=== PATIENT | female | born 1940 | race Caucasian/White ===

== ENCOUNTER 2017-12-08 17:10 | Inpatient (IN) ==
[2017-12-08] MEDS: Gabapentin 300 MG CAPSULE PO SCH (19:55)
[2017-12-08] MEDS: *HR* HYDROcodone/Acet 5/325 mg TABLET PO PRN (19:55)
[2017-12-09] MEDS: *HR* HYDROcodone/Acet 5/325 mg TABLET PO PRN ×3 (06:14→21:52)
[2017-12-09 07:13] LABS: Basophils % 0.4 %; Eosinophils # 0.2 K/mcL (0.0-0.6); Hematocrit 25.3 % (35.3-44.9); Hemoglobin 8.6 g/dL (11.5-15.4); Immature Granulocytes % 3.1 % (0-4); Lymphocytes # 1.6 K/mcL (0.6-4.6); Lymphocytes % 21.8 %; Mean Corpuscular Hemoglobin 26.5 pg (28.0-33.3); Mean Corpuscular Volume 78.1 fL (83.0-100.0); Mean Platelet Volume 10.1 fL (9.4-12.4); Monocytes # 0.9 K/mcL (0.0-1.3); Monocytes % 11.7 %; Platelet Count 293 K/mcL (140-400); Red Blood Count 3.24 M/mcL (3.82-4.97); Red Cell Distribution Width 14.2 % (11.5-14.5)
[2017-12-09 07:15] LABS: INR 1.2; Neutrophils # 4.4 K/mcL (1.6-8.9); Prothrombin Time 12.5 Seconds (9.4-12.1)
[2017-12-09 07:17] LABS: Activated Partial Thrombo Time 26.1 Seconds (26.0-36.0)
[2017-12-09] MEDS: Gabapentin 300 MG CAPSULE PO SCH ×2 (08:24→21:52)
[2017-12-09] MEDS: Furosemide 40 MG TABLET PO SCH (08:24)
[2017-12-09] MEDS: amLODIPine 5 MG TABLET PO SCH (08:24)
[2017-12-09] MEDS: *HR* GlipiZIDE 5 MG TABLET PO SCH (08:24)
[2017-12-09] MEDS: traMADol 50 MG TABLET PO PRN ×2 (08:24→17:39)
[2017-12-09 09:17] LABS: BUN/Creatinine Ratio 33 (6-26); Blood Urea Nitrogen 28 mg/dL (7-20); Calcium 9.1 mg/dL (8.6-10.8); Carbon Dioxide 25 mEq/L (19-29); Chloride 103 mEq/L (98-109); Glucose 139 mg/dL (70-99); Osmolality,Calculated 296 (280-300); Potassium 3.8 mEq/L (3.5-4.5); Sodium 139 mEq/L (136-145); eGFR For African Americans > 60 (> 60); eGFR For Non-African Americans > 60 (> 60)
[2017-12-09] MEDS ORDERED: Bisacodyl 10 MG RECTAL SUPPOSITORY RC PRN (11:07)
--- NOTE | 2017-12-09 12:08 | Internal Med History&Physical ---
Date of Encounter: 12/09/17 Time of Encounter: 12:03 Assessment and Plan (1) S/P lumbar fusion Current visit: Yes Status: Acute pain controlled. continue norco as ordered. PT/OT eval and treat. will follow progress. f/u with surgeon as scheduled. (2) Diabetes Current visit: No Status: Chronic stable with glipizide. monitor FSBS. will adjust meds a necessary. Qualifiers: Diabetes mellitus type: type 2 Diabetes mellitus complication status: with unspecified complications Diabetes mellitus long term care administrator insulin use: without mcc use Qualified Code(s): E11.8 - Type 2 diabetes mellitus with unspecified complications (3) Hypertension Current visit: No Status: Acute controlled with metoprolol and norvasc. monitor BP. Qualifiers: Hypertension type: essential hypertension Qualified Code(s): I10 - Essential (primary) hypertension (4) Slow transit constipation Current visit: Yes Status: Acute dulcolax sup today. miralax daily Internal Medicine - H&P: HPI Admitted From: Intrahospital Transfer Plans for Post Hospital Care: Home History of present illness: Ms. Mcginnis is a 77 year old female admitted to inpatient rehab after lumbar spinal fusion on . hx of: neuropathy, HTN, dyslipidemia, gout, DM2, herpes simplex 1, diastolic dysfunction, CKD stg 3, lumbar stenosis. states pain controlled with norco. c/o constipation. last BM was at least 5 days ago. denies fever, chills, NVD. Past Med Surg Social Fam HX - Past Medical History Medical history: COPD, diabetes, RA, other Psychiatric history: no psych history, anxiety - Past Surgical History Surgical History: hysterectomy, other - Social History Smoking Status: Never smoker Smokeless Tobacco Status: No Alcohol use: none Drug use: none - Family History Mother Living Status: Cause of : mi Hx Family Cardiac Disorders: Yes (chf) Hx Family Respiratory Disorders: No Hx Family Cancer: No Hx Family GI Disorders: No Hx Family Endocrine Disorder: Yes (diabetes) Hx Family Neuromuscular Disorders: No Hx Family Neurologic Disorders: No Hx Family HEENT Disorders: No Hx Family Autoimmune Disorders: No Internal Medicine - H&P: Meds Atorvastatin [Lipitor] 20 mg PO HS 10/06/15 [History] TraMADol [Ultram] 50 mg PO QID PRN 10/06/15 [History] Gabapentin [Neurontin] 300 mg PO BID 05/02/17 [History] Loperamide HCl [Imodium A-D] 2 mg PO Q6H PRN 05/02/17 [History] glipiZIDE [Glucotrol] 5 mg PO DAILY 05/02/17 [History] Metoprolol [Lopressor] 25 mg PO BID #60 tablet 05/05/17 [Rx] amLODIPine [Norvasc] 5 mg PO DAILY #30 tablet 05/05/17 [Rx] Albuterol Sulfate [Albuterol Inhaler] 2 puff IH Q4HR PRN 12/03/17 [History] Furosemide [Lasix] 40 mg PO DAILY 12/03/17 [History] Naproxen Sodium [Aleve] 220 mg PO BID PRN 12/03/17 [History] HYDROcodone/Acet 5/325 mg [Herrin 5-325 mg] 2 tab PO Q4H PRN #60 tablet 12/08/17 [Rx] 3 Allergy/AdvReac Type Severity Reaction Status Date / Time codeine AdvReac Vomiting Verified 12/03/17 07:10 All Systems PM: A 10-system review of systems was performed and is negative for pertinent findings except as documented above in the HPI. - Constitutional Constitutional: no chills, no fever(s), no night sweats - EENT Eyes: no change in vision, no discharge, no pain, no photophobia Ears: no ear discharge, no ear pain, no tinnitus Nose, mouth and throat: no dysphagia, no nasal discharge, no neck pain, no sore throat - Cardiovascular Cardiovascular ROS IM: no chest pain, no diaphoresis, no dyspnea, no lightheadedness, no palpitations, no syncope - Respiratory Respiratory: no cough, no dyspnea, no wheezing, no excessive phlegm production - Gastrointestinal Gastrointestinal: no abdominal pain, no diarrhea, no hematemesis, no hematochezia, no melena, no nausea, no vomiting - Genitourinary Genitourinary: no change in urinary stream, no dysuria, no flank pain, no hematuria - Musculoskeletal Musculoskeletal ROS IM: no numbness, no tingling - Integumentary Integumentary IM: no rash, no unusual bruising - Neurological Neurological ROS: no confusion, no convulsions, no focal weakness, no numbness, no tingling, no tremor(s) - Hematologic/Lymphatic Hematologic/Lymphatic: no easy bruising - Constitutional Vitals: Temp Pulse Resp BP Pulse Ox 99.2 F 75 16 120/67 90 12/09/17 07:00 12/09/17 07:00 12/09/17 03:46 12/09/17 07:00 12/09/17 07:00 General appearance: Present: cooperative, A&O X 3, pleasant, no acute distress, answers questions appropriately - Head Head exam: Present: atraumatic, normocephalic - Eye Eye exam: Present: PERRL, conjuntiva pink, sclera anicteric Pupils: Present: PERRL - Neck Neck exam general surgery: Present: supple, trachea midline. Absent: lymphadenopathy - Respiratory Respiratory exam: Present: CTAB. Absent: accessory muscle use, rales, rhonchi, wheezes - Cardiovascular Cardiovascular exam: Present: RRR, +S1, +S2. Absent: diastolic murmur, gallop, rubs, systolic murmur - GI/Abdominal GI/Abdominal exam: Present: normal bowel sounds, soft, no peritoneal signs. Absent: distended, tenderness - Extremities Exam Extremities exam: Present: warm, radial pulses palpable and symmetrical. Absent : calf tenderness, cyanotic, pedal edema - Neurological Exam Neurological exam: Present: CN II-XII intact, oriented X3, no focal deficits. Absent: pronater drift, facial droop, speech deficit - Skin Skin exam: Present: dry, intact Additional comments: lumbar spine incision well approixmated with steris in place. no drainage or signs of infection. Internal Med - H&P Results - Labs CBC & Chem 7: 12/09/17 07:05 12/09/17 07:05 Labs: Short CBC 12/09/17 Range/Units 07:05 WBC 7.4 D (4.3-11.1) K/mcL Hgb 8.6 L (11.5-15.4) g/dL Hct 25.3 L (35.3-44.9) % Plt Count 293 (140-400) K/mcL Neutrophils # 4.4 (1.6-8.9) K/mcL BMP 12/09/17 07:05 Sodium 139 Potassium 3.8 Chloride 103 Carbon Dioxide 25 BUN 28 H Creatinine 0.84 Glucose 139 H Calcium 9.1 - VTE Documentation of Mechanical Device: Graduated compression elastic hosiery
[2017-12-09] MEDS: *HR* Enoxaparin 40 MG/0.4 ML SYRINGE SQ SCH (17:40)
[2017-12-10] MEDS: *HR* HYDROcodone/Acet 5/325 mg TABLET PO PRN ×2 (07:50→17:26)
[2017-12-10] MEDS: *HR* GlipiZIDE 5 MG TABLET PO SCH (08:35)
[2017-12-10] MEDS: Furosemide 40 MG TABLET PO SCH ×2 (08:35→08:37)
[2017-12-10] MEDS: amLODIPine 5 MG TABLET PO SCH (08:35)
[2017-12-10] MEDS: *HR* Enoxaparin 40 MG/0.4 ML SYRINGE SQ SCH (08:35)
[2017-12-10] MEDS: Gabapentin 300 MG CAPSULE PO SCH ×2 (08:35→20:24)
[2017-12-10] MEDS ORDERED: Bisacodyl 10 MG RECTAL SUPPOSITORY RC PRN (12:42)
--- NOTE | 2017-12-10 12:47 | Internal Med Progress Note ---
Date of Encounter: 12/10/17 Time of Encounter: 12:44 - Assessment and plan (1) S/P lumbar fusion Current Visit: Yes Status: Acute Assessment and plan: Patient is progressing well with physical therapy. Patient continues to complain of minimal to moderate pain to lumbar surgical site and states she continues to have similar preoperative radicular symptoms. Patient denies any acute neurological deficits. We will continue with current plan of care and therapy. Agents pain currently controlled with oral medications. (2) Diabetes Current Visit: No Status: Chronic Assessment and plan: No acute issues. Patient continues with fingersticks and encouraged from SSI. Glucose is less than 150. We will continue with current scheduled coverage. Qualifiers: Diabetes mellitus type: type 2 Diabetes mellitus complication status: without complication Diabetes mellitus termite control representative insulin use: without termite control representative use Qualified Code(s): E11.9 - Type 2 diabetes mellitus without complications (3) Slow transit constipation Current Visit: Yes Status: Acute Assessment and plan: Patient complains of constipation with no BM over the last several days. States she has taken several when necessary medications with minimal response. We will increase current Colace dosing and start on scheduled senna. We will give Dulcolax suppository now. - Time Spent With Patient less than 15 minutes - Subjective Interval history: Patient currently complains of moderate pain to her lower back surgical site and states she continues to have aching or pain to her right hip and leg during ambulation. Patient states that her current pain is tolerable with the current medications that she is on. Patient complains of constipation stating she has not had a bowel movement in several days. She states that she is requiring taken several when necessary medications with no effect. Patient denies any acute sensory deficits. Denies any shortness of breath. - Constitutional Vitals: Temp Pulse Resp BP Pulse Ox 98.1 F 70 16 115/59 94 12/10/17 08:00 12/10/17 08:00 12/10/17 08:00 12/10/17 08:00 12/10/17 08:00 General appearance: Present: cooperative, A&O X 3, pleasant, no acute distress, answers questions appropriately - Head Head exam: Present: atraumatic, normocephalic - Eye Eye exam: Present: PERRL, conjuntiva pink, sclera anicteric Pupils: Present: PERRL - Neck Neck exam general surgery: Present: supple, trachea midline. Absent: lymphadenopathy - Respiratory Respiratory exam: Present: CTAB. Absent: accessory muscle use, rales, rhonchi, wheezes - Cardiovascular Cardiovascular exam: Present: RRR, +S1, +S2. Absent: diastolic murmur, gallop, rubs, systolic murmur - GI/Abdominal GI/Abdominal exam: Present: normal bowel sounds, soft, no peritoneal signs. Absent: distended, tenderness - Extremities Exam Extremities exam: Present: warm, radial pulses palpable and symmetrical. Absent : calf tenderness, cyanotic, pedal edema - Neurological Exam Neurological exam: Present: CN II-XII intact, oriented X3, no focal deficits. Absent: pronater drift, facial droop, speech deficit Additional comments: Leg lift was negative on right leg for pain. No clonus noted and no focal neurological deficits noted during exam. - Skin Skin exam: Present: dry, intact Additional comments: Lumbar surgical incision appears to be healing well. Internal Medicine: Result - Labs CBC & Chem 7: 12/09/17 07:05 12/09/17 07:05 - ABG Interpretation ABG results: PT/INR, D-dimer PT 12.5 Seconds (9.4-12.1) H 12/09/17 07:05 - VTE Documentation of Mechanical Device: Graduated compression elastic hosiery Consult Discharge Plan - Plan Referrals: Rey Márquez MD [Primary Care Provider] -
[2017-12-10] MEDS: traMADol 50 MG TABLET PO PRN (20:24)
[2017-12-11] MEDS: Sennosides 8.6 MG TABLET PO SCH ×3 (00:40→20:11)
[2017-12-11] MEDS: *HR* Enoxaparin 40 MG/0.4 ML SYRINGE SQ SCH (07:42)
[2017-12-11] MEDS: Furosemide 40 MG TABLET PO SCH (07:42)
[2017-12-11] MEDS: *HR* GlipiZIDE 5 MG TABLET PO SCH (07:42)
[2017-12-11] MEDS: amLODIPine 5 MG TABLET PO SCH (07:42)
[2017-12-11] MEDS: *HR* HYDROcodone/Acet 5/325 mg TABLET PO PRN ×2 (07:42→16:24)
[2017-12-11] MEDS: Gabapentin 300 MG CAPSULE PO SCH ×2 (07:42→20:11)
--- NOTE | 2017-12-11 11:19 | Internal Med Progress Note ---
Date of Encounter: 12/11/17 Time of Encounter: 11:16 - Assessment and plan (1) S/P lumbar fusion Current Visit: Yes Status: Acute Assessment and plan: Patient is progressing well with physical therapy. Patient denies any acute neurological deficits. will continue with current plan of care and therapy. pain currently controlled with oral medications. (2) Diabetes Current Visit: No Status: Chronic Assessment and plan: No acute issues. Patient continues with fingersticks and encouraged from SSI. Glucose is less than 150. We will continue with current scheduled coverage. Qualifiers: Diabetes mellitus type: type 2 Diabetes mellitus complication status: without complication Diabetes mellitus local company intermodal truck driver insulin use: without fci use Qualified Code(s): E11.9 - Type 2 diabetes mellitus without complications (3) Hypertension Current Visit: No Status: Acute Assessment and plan: stable . continue current meds and monitor BP. (4) Slow transit constipation Current Visit: Yes Status: Acute Assessment and plan: pt states bowels moved this am. will continue with current meds and monitor. - Time Spent With Patient less than 15 minutes - Subjective Interval history: participating well with therapy. ambulating in [place]varez with walker with therapy. states current pain meds effective for pain. states bowels moved this am, still feels "constipated" will continue with current bowel regimen. - Constitutional Vitals: Temp Pulse Resp BP Pulse Ox 98.4 F 71 16 116/61 93 12/11/17 06:00 12/11/17 06:00 12/11/17 06:00 12/11/17 06:00 12/11/17 06:00 General appearance: Present: cooperative, A&O X 3, pleasant, no acute distress, answers questions appropriately - Head Head exam: Present: atraumatic, normocephalic - Eye Eye exam: Present: PERRL, conjuntiva pink, sclera anicteric Pupils: Present: PERRL - Neck Neck exam general surgery: Present: supple, trachea midline. Absent: lymphadenopathy - Respiratory Respiratory exam: Present: CTAB. Absent: accessory muscle use, rales, rhonchi, wheezes - Cardiovascular Cardiovascular exam: Present: RRR, +S1, +S2. Absent: diastolic murmur, gallop, rubs, systolic murmur - GI/Abdominal GI/Abdominal exam: Present: normal bowel sounds, soft, no peritoneal signs. Absent: distended, tenderness - Extremities Exam Extremities exam: Present: warm, radial pulses palpable and symmetrical. Absent : calf tenderness, cyanotic, pedal edema - Neurological Exam Neurological exam: Present: CN II-XII intact, normal gait, oriented X3, no focal deficits, strengths equal and symetr throughout. Absent: pronater drift, facial droop, speech deficit - Skin Skin exam: Present: dry, intact Additional comments: lumbar incicsion. well approximated, no drainage. no signs of infection. Internal Medicine: Result - Labs CBC & Chem 7: 12/09/17 07:05 12/09/17 07:05 - ABG Interpretation ABG results: PT/INR, D-dimer PT 12.5 Seconds (9.4-12.1) H 12/09/17 07:05 - VTE Documentation of Mechanical Device: Graduated compression elastic hosiery Consult Discharge Plan - Plan Referrals: Rey Márquez MD [Primary Care Provider] -
[2017-12-11] MEDS: traMADol 50 MG TABLET PO PRN (20:11)
[2017-12-12] MEDS: *HR* HYDROcodone/Acet 5/325 mg TABLET PO PRN ×2 (07:50→13:25)
[2017-12-12] MEDS: Sennosides 8.6 MG TABLET PO SCH ×2 (09:15→20:28)
[2017-12-12] MEDS: *HR* GlipiZIDE 5 MG TABLET PO SCH (09:15)
[2017-12-12] MEDS: Gabapentin 300 MG CAPSULE PO SCH ×2 (09:15→20:22)
[2017-12-12] MEDS: *HR* Enoxaparin 40 MG/0.4 ML SYRINGE SQ SCH (09:15)
[2017-12-12] MEDS: amLODIPine 5 MG TABLET PO SCH (09:15)
[2017-12-12] MEDS: Furosemide 40 MG TABLET PO SCH (09:15)
--- NOTE | 2017-12-12 10:23 | Internal Med Progress Note ---
Date of Encounter: 12/12/17 Time of Encounter: 10:21 - Assessment and plan (1) S/P lumbar fusion Current Visit: Yes Status: Acute Assessment and plan: Patient is progressing well with physical therapy. Patient denies any acute neurological deficits. will continue with current plan of care and therapy. pain currently controlled with oral medications. (2) Diabetes Current Visit: No Status: Chronic Assessment and plan: No acute issues. Patient continues with fingersticks and encouraged from SSI. Glucose remains less than 150. We will continue with current scheduled coverage. Qualifiers: Diabetes mellitus type: type 2 Diabetes mellitus complication status: without complication Diabetes mellitus long term care social worker insulin use: without long term care social worker use Qualified Code(s): E11.9 - Type 2 diabetes mellitus without complications (3) Slow transit constipation Current Visit: Yes Status: Acute (4) Anemia Current Visit: Yes Status: Acute Assessment and plan: Patient's hemoglobin was 8.6, MCV 78. We will recheck patient's labs in the morning. Likely secondary to surgical blood loss. Qualifiers: Anemia type: unspecified type Qualified Code(s): D64.9 - Anemia, unspecified - Subjective Interval history: Patient currently complains of slight low back pain with continued slight radicular symptoms in the right hip and leg. Denies any acute neurological deficits. Denies any chest discomforts or shortness of breath. - Constitutional Vitals: Temp Pulse Resp BP Pulse Ox 98 F 76 16 132/72 90 12/12/17 07:00 12/12/17 07:00 12/12/17 07:00 12/12/17 07:00 12/12/17 07:00 General appearance: Present: cooperative, A&O X 3, pleasant, no acute distress, answers questions appropriately - Head Head exam: Present: atraumatic, normocephalic - Eye Eye exam: Present: PERRL, conjuntiva pink, sclera anicteric Pupils: Present: PERRL - Neck Neck exam general surgery: Present: supple, trachea midline. Absent: lymphadenopathy - Respiratory Respiratory exam: Present: CTAB. Absent: accessory muscle use, rales, rhonchi, wheezes - Cardiovascular Cardiovascular exam: Present: RRR, +S1, +S2. Absent: diastolic murmur, gallop, rubs, systolic murmur - GI/Abdominal GI/Abdominal exam: Present: normal bowel sounds, soft, no peritoneal signs. Absent: distended, tenderness - Extremities Exam Extremities exam: Present: warm, radial pulses palpable and symmetrical. Absent : calf tenderness, cyanotic, pedal edema - Neurological Exam Neurological exam: Present: CN II-XII intact, oriented X3, no focal deficits. Absent: pronater drift, facial droop, speech deficit Additional comments: Continued complaint of radicular pain that radiates from low back to right hip. No changes in sensitivity. No focal neurological deficits noted. No clonus. - Skin Skin exam: Present: dry, intact Additional comments: Lumbar surgical incision appears healthy Internal Medicine: Result - Labs CBC & Chem 7: 12/09/17 07:05 12/09/17 07:05 - ABG Interpretation ABG results: PT/INR, D-dimer PT 12.5 Seconds (9.4-12.1) H 12/09/17 07:05 - VTE Documentation of Mechanical Device: Graduated compression elastic hosiery Consult Discharge Plan - Plan Referrals: Rey Márquez MD [Primary Care Provider] -
[2017-12-13] MEDS: traMADol 50 MG TABLET PO PRN ×2 (03:49→10:42)
[2017-12-13 05:25] LABS: Hematocrit 24.8 % (35.3-44.9); Hemoglobin 8.2 g/dL (11.5-15.4); Mean Corpuscular HGB Conc 33.1 g/dL (31.6-35.5); Mean Corpuscular Hemoglobin 26.5 pg (28.0-33.3); Mean Corpuscular Volume 80.3 fL (83.0-100.0); Mean Platelet Volume 10.1 fL (9.4-12.4); Platelet Count 310 K/mcL (140-400); Red Blood Count 3.09 M/mcL (3.82-4.97); Red Cell Distribution Width 14.5 % (11.5-14.5)
[2017-12-13 05:47] LABS: Alanine Aminotransferase 16 Units/L (0-55); Albumin 2.7 g/dL (3.5-5.0); Albumin/Globulin Ratio 0.8 (1.1-2.2); Alkaline Phosphatase 55 Units/L (38-126); Aspartate Amino Transferase 17 Units/L (5-34); BUN/Creatinine Ratio 23 (6-26); Bilirubin,Total 0.5 mg/dL (0.2-1.2); Blood Urea Nitrogen 19 mg/dL (7-20); Carbon Dioxide 24 mEq/L (19-29); Chloride 104 mEq/L (98-109); Globulin 3.6 g/dL (2.4-3.5); Glucose 152 mg/dL (70-99); Osmolality,Calculated 291 (280-300); Potassium 4.5 mEq/L (3.5-4.5); Sodium 138 mEq/L (136-145); Total Protein 6.3 g/dL (6.0-8.3); eGFR For African Americans > 60 (> 60); eGFR For Non-African Americans > 60 (> 60)
[2017-12-13] MEDS: *HR* Enoxaparin 40 MG/0.4 ML SYRINGE SQ SCH (08:26)
[2017-12-13] MEDS: Gabapentin 300 MG CAPSULE PO SCH ×2 (08:27→22:03)
[2017-12-13] MEDS: amLODIPine 5 MG TABLET PO SCH (08:27)
[2017-12-13] MEDS: *HR* GlipiZIDE 5 MG TABLET PO SCH (08:27)
[2017-12-13] MEDS: Furosemide 40 MG TABLET PO SCH (08:27)
[2017-12-13] MEDS: Sennosides 8.6 MG TABLET PO SCH ×2 (08:27→22:04)
[2017-12-13] MEDS: *HR* HYDROcodone/Acet 5/325 mg TABLET PO PRN ×3 (08:27→22:03)
--- NOTE | 2017-12-13 13:05 | Internal Med Progress Note ---
Date of Encounter: 12/13/17 Time of Encounter: 12:40 - Assessment and plan (1) Microcytic anemia Current Visit: Yes Status: Acute Assessment and plan: - Will trend CBC and obtain iron studies, CRP, and FOBT. - Transfuse to keep Hb above 7 or when symptomatic. (2) Diabetes Current Visit: No Status: Chronic Assessment and plan: No acute issues. Patient continues with fingersticks and encouraged from SSI. We will continue with current scheduled coverage. Qualifiers: Diabetes mellitus type: type 2 Diabetes mellitus complication status: without complication Diabetes mellitus exterminator helper insulin use: without exterminator helper use Qualified Code(s): E11.9 - Type 2 diabetes mellitus without complications (3) S/P lumbar fusion Current Visit: Yes Status: Acute Assessment and plan: Patient is progressing well with physical therapy. Will continue with current plan of care and therapy. pain currently controlled with oral medications. - Time Spent With Patient less than 15 minutes - Subjective Interval history: Feeling "better." Had BM. Eating okay. No particular concern right now. - Constitutional Vitals: Temp Pulse Resp BP Pulse Ox 100.1 F H 83 20 119/57 92 12/13/17 07:27 12/13/17 07:27 12/13/17 07:27 12/13/17 07:27 12/13/17 07:27 General appearance: Present: cooperative, A&O X 3, pleasant, no acute distress, answers questions appropriately Exam: Gen: A&Ox3, NAD. HEENT: NCAT. Neck: No palpable lymphadenopathy or thyromegaly. CV: RRR, S1S2. 2/6, systolic murmur appreciated. Capillary refill < 2 seconds. Pulm: CTAB. Abd: (+)BS. NDNT. Neuro: Non-focal. Skin: No rash. Ext: No pitting edema. Back: Back brace in place. Internal Medicine: Result - Labs CBC & Chem 7: 12/13/17 05:07 12/13/17 05:07 Labs: Short CBC 12/13/17 Range/Units 05:07 WBC 7.2 (4.3-11.1) K/mcL Hgb 8.2 L (11.5-15.4) g/dL Hct 24.8 L (35.3-44.9) % Plt Count 310 (140-400) K/mcL BMP 12/13/17 05:07 Sodium 138 Potassium 4.5 Chloride 104 Carbon Dioxide 24 BUN 19 Creatinine 0.83 Glucose 152 H Calcium 9.0 Liver Function 12/13/17 Range/Units 05:07 Total Bilirubin 0.5 (0.2-1.2) mg/dL AST 17 (5-34) Units/L ALT 16 (0-55) Units/L Alkaline Phosphatase 55 (38-126) Units/L Albumin 2.7 L (3.5-5.0) g/dL - ABG Interpretation ABG results: PT/INR, D-dimer PT 12.5 Seconds (9.4-12.1) H 12/09/17 07:05 - VTE Documentation of Mechanical Device: Graduated compression elastic hosiery Consult Discharge Plan - Plan Referrals: Rey Márquez MD [Primary Care Provider] -
[2017-12-14 06:02] LABS: Basophils % 0.3 %; Eosinophils # 0.2 K/mcL (0.0-0.6); Eosinophils % 2.5 %; Hematocrit 26.7 % (35.3-44.9); Hemoglobin 8.8 g/dL (11.5-15.4); Immature Granulocytes % 2.6 % (0-4); Immature Reticulocyte % 26.4 % (11.0-38.0); Lymphocytes # 1.4 K/mcL (0.6-4.6); Lymphocytes % 20.6 %; Mean Corpuscular Hemoglobin 26.4 pg (28.0-33.3); Mean Corpuscular Volume 80.2 fL (83.0-100.0); Mean Platelet Volume 10.1 fL (9.4-12.4); Monocytes # 0.6 K/mcL (0.0-1.3); Monocytes % 8.1 %; Neutrophils # 4.6 K/mcL (1.6-8.9); Platelet Count 338 K/mcL (140-400); Red Blood Count 3.33 M/mcL (3.82-4.97); Red Cell Distribution Width 14.4 % (11.5-14.5); Retculocyte # 0.11 M/mcL (0.05-0.10); Reticulocyte % 3.3 % (1.6-2.8); Segmented Neutrophils % 65.9 %
[2017-12-14] MEDS: *HR* HYDROcodone/Acet 5/325 mg TABLET PO PRN ×3 (06:59→20:00)
[2017-12-14] MEDS: Furosemide 40 MG TABLET PO SCH (08:43)
[2017-12-14] MEDS: *HR* Enoxaparin 40 MG/0.4 ML SYRINGE SQ SCH (08:43)
[2017-12-14] MEDS: Gabapentin 300 MG CAPSULE PO SCH ×2 (08:43→20:01)
[2017-12-14] MEDS: *HR* GlipiZIDE 5 MG TABLET PO SCH (08:43)
[2017-12-14] MEDS: amLODIPine 5 MG TABLET PO SCH (08:43)
[2017-12-14] MEDS: Sennosides 8.6 MG TABLET PO SCH ×2 (08:44→20:00)
--- NOTE | 2017-12-14 11:48 | Internal Med Progress Note ---
Date of Encounter: 12/14/17 Time of Encounter: 11:20 - Assessment and plan (1) Microcytic anemia Current Visit: Yes Status: Acute Assessment and plan: - H&H appears stable, but reticulocytosis does not appear to be adequate for the degree of the patient's anemia. - Iron studies and CRP pending. Still need FOBT. - If indeed iron-deficient, the patient should be started on iron as this could be contributing to her leg/thigh cramps. - Transfuse to keep Hb above 7 or when symptomatic. (2) Diabetes Current Visit: No Status: Chronic Assessment and plan: No acute issues. Patient continues with fingersticks and encouraged from SSI. We will continue with current scheduled coverage. Qualifiers: Diabetes mellitus type: type 2 Diabetes mellitus complication status: without complication Diabetes mellitus terminal make up operator insulin use: without terminal make up operator use Qualified Code(s): E11.9 - Type 2 diabetes mellitus without complications (3) S/P lumbar fusion Current Visit: Yes Status: Acute Assessment and plan: Patient is progressing well with physical therapy. Will continue with current plan of care and therapy. pain currently controlled with oral medications. (4) Thigh cramp Current Visit: Yes Status: Acute Assessment and plan: - Possibly contributed by undiagnosed CARLOS A, for which iron studies are currently pending. - Symptomatic support with ice compresses and a one-time Benadryl. - Time Spent With Patient less than 15 minutes - Subjective Interval history: Reports having bad leg/thigh cramps on the right side. No other concern right now. - Constitutional Vitals: Temp Pulse Resp BP Pulse Ox 98.0 F 76 16 123/58 93 12/13/17 21:00 12/13/17 21:00 12/13/17 21:00 12/13/17 21:00 12/13/17 21:00 General appearance: Present: cooperative, A&O X 3, pleasant, no acute distress, answers questions appropriately Exam: Gen: A&Ox3, NAD. HEENT: NCAT. Neck: No palpable lymphadenopathy or thyromegaly. CV: RRR, S1S2. 2/6, systolic murmur appreciated. Capillary refill < 2 seconds. Pulm: CTAB. Abd: (+)BS. NDNT. Neuro: Non-focal. Skin: No rash. Ext: No pitting edema. Internal Medicine: Result - Labs CBC & Chem 7: 12/14/17 05:50 12/13/17 05:07 Labs: Short CBC 12/14/17 Range/Units 05:50 WBC 6.9 (4.3-11.1) K/mcL Hgb 8.8 L (11.5-15.4) g/dL Hct 26.7 L (35.3-44.9) % Plt Count 338 (140-400) K/mcL Neutrophils # 4.6 (1.6-8.9) K/mcL - ABG Interpretation ABG results: PT/INR, D-dimer PT 12.5 Seconds (9.4-12.1) H 12/09/17 07:05 - VTE Documentation of Mechanical Device: Graduated compression elastic hosiery Consult Discharge Plan - Plan Referrals: Rey Márquez MD [Primary Care Provider] -
[2017-12-14 19:06] LABS: % Iron Saturation 8 % (15-50); C-Reactive Protein 17 mg/L (Less than 10); Ferritin 179 ng/ml (10-120); Iron 25 mcg/dL (50-170); Transferrin 228 mg/dL (203-362)
[2017-12-15] MEDS: traMADol 50 MG TABLET PO PRN (04:32)
[2017-12-15 05:23] LABS: Basophils % 0.5 %; Eosinophils # 0.2 K/mcL (0.0-0.6); Eosinophils % 3.2 %; Hemoglobin 8.6 g/dL (11.5-15.4); Immature Granulocytes % 2.4 % (0-4); Lymphocytes # 1.7 K/mcL (0.6-4.6); Lymphocytes % 25.7 %; Mean Corpuscular HGB Conc 31.9 g/dL (31.6-35.5); Mean Corpuscular Hemoglobin 25.6 pg (28.0-33.3); Mean Corpuscular Volume 80.4 fL (83.0-100.0); Mean Platelet Volume 10.3 fL (9.4-12.4); Monocytes # 0.5 K/mcL (0.0-1.3); Monocytes % 7.3 %; Platelet Count 318 K/mcL (140-400); Red Blood Count 3.36 M/mcL (3.82-4.97); Red Cell Distribution Width 14.5 % (11.5-14.5); Segmented Neutrophils % 60.9 %
[2017-12-15 05:32] LABS: BUN/Creatinine Ratio 24 (6-26); Blood Urea Nitrogen 22 mg/dL (7-20); Calcium 9.2 mg/dL (8.6-10.8); Carbon Dioxide 24 mEq/L (19-29); Chloride 105 mEq/L (98-109); Glucose 132 mg/dL (70-99); Osmolality,Calculated 293 (280-300); Potassium 4.3 mEq/L (3.5-4.5); Sodium 139 mEq/L (136-145); eGFR For African Americans > 60 (> 60); eGFR For Non-African Americans 60 (> 60)
[2017-12-15] MEDS: *HR* HYDROcodone/Acet 5/325 mg TABLET PO PRN ×2 (08:33→20:30)
[2017-12-15] MEDS: *HR* Enoxaparin 40 MG/0.4 ML SYRINGE SQ SCH (08:34)
[2017-12-15] MEDS: Gabapentin 300 MG CAPSULE PO SCH ×2 (08:34→21:06)
[2017-12-15] MEDS: amLODIPine 5 MG TABLET PO SCH (08:34)
[2017-12-15] MEDS: *HR* GlipiZIDE 5 MG TABLET PO SCH (08:34)
[2017-12-15] MEDS: Furosemide 40 MG TABLET PO SCH (08:35)
[2017-12-15] MEDS: Sennosides 8.6 MG TABLET PO SCH ×2 (08:36→21:14)
--- NOTE | 2017-12-15 12:24 | Internal Med Progress Note ---
Date of Encounter: 12/15/17 Time of Encounter: 12:22 - Assessment and plan (1) S/P lumbar fusion Current Visit: Yes Status: Acute Assessment and plan: Patient is progressing well with physical therapy. Will continue with current plan of care and therapy. pain currently controlled with oral medications. Surgical incision appears healthy. No acute neurological deficits noted on exam (2) Diabetes Current Visit: No Status: Chronic Assessment and plan: No acute issues. Patient continues with fingersticks and encouraged from [facility]. We will continue with current scheduled coverage. Qualifiers: Diabetes mellitus type: type 2 Diabetes mellitus complication status: without complication Diabetes mellitus ocean transportation intermediary insulin use: without alf use Qualified Code(s): E11.9 - Type 2 diabetes mellitus without complications (3) Slow transit constipation Current Visit: No Status: Acute (4) Anemia Current Visit: No Status: Acute Assessment and plan: Patient's hemoglobin was 8.6, MCV 78. We will recheck patient's labs in the morning. Likely secondary to surgical blood loss. Qualifiers: Anemia type: unspecified type Qualified Code(s): D64.9 - Anemia, unspecified (5) Urinary frequency Current Visit: Yes Status: Acute Assessment and plan: Patient with complaints of urinary frequency or past 2 days. Denies any dysuria. Afebrile. We will send urine for urinalysis - Subjective Interval history: Patient currently complains of urinary frequency over the past few days. Denies any dysuria or fever/chills. Patient continues with complaint of slight low back pain with continued slight radicular symptoms in the right hip and leg. Denies any acute neurological deficits. Denies any chest discomforts or shortness of breath. - Constitutional Vitals: Temp Pulse Resp BP Pulse Ox 98.1 F 67 16 119/63 92 12/15/17 07:35 12/15/17 07:35 12/15/17 07:35 12/15/17 07:35 12/15/17 07:35 General appearance: Present: cooperative, A&O X 3, pleasant, no acute distress, answers questions appropriately - Head Head exam: Present: atraumatic, normocephalic - Eye Eye exam: Present: PERRL, conjuntiva pink, sclera anicteric Pupils: Present: PERRL - Neck Neck exam general surgery: Present: supple, trachea midline. Absent: lymphadenopathy - Respiratory Respiratory exam: Present: CTAB. Absent: accessory muscle use, rales, rhonchi, wheezes - Cardiovascular Cardiovascular exam: Present: RRR, +S1, +S2. Absent: diastolic murmur, gallop, rubs, systolic murmur - GI/Abdominal GI/Abdominal exam: Present: normal bowel sounds, soft, no peritoneal signs. Absent: distended, tenderness - Extremities Exam Extremities exam: Present: warm, radial pulses palpable and symmetrical. Absent : calf tenderness, cyanotic, pedal edema - Neurological Exam Neurological exam: Present: CN II-XII intact, oriented X3, no focal deficits. Absent: pronater drift, facial droop, speech deficit - Skin Skin exam: Present: dry, intact Additional comments: Lumbar surgical incision remains clean and intact Internal Medicine: Result - Labs CBC & Chem 7: 12/15/17 04:45 12/15/17 04:45 Labs: Short CBC 12/15/17 Range/Units 04:45 WBC 6.6 (4.3-11.1) K/mcL Hgb 8.6 L (11.5-15.4) g/dL Hct 27.0 L (35.3-44.9) % Plt Count 318 (140-400) K/mcL Neutrophils # 4.0 (1.6-8.9) K/mcL BMP 12/15/17 04:45 Sodium 139 Potassium 4.3 Chloride 105 Carbon Dioxide 24 BUN 22 H Creatinine 0.91 Glucose 132 H Calcium 9.2 - ABG Interpretation ABG results: PT/INR, D-dimer PT 12.5 Seconds (9.4-12.1) H 12/09/17 07:05 - VTE Documentation of Mechanical Device: Graduated compression elastic hosiery Consult Discharge Plan - Plan Referrals: Rey Márquez MD [Primary Care Provider] -
[2017-12-15 19:15] LABS: Bilirubin,Urine Negative (Negative); Blood,Urine Negative (Negative); Clarity,Urine Slightly Cloudy (Clear); Glucose,Urine (UA) Normal (Normal); Ketones,Urine Negative (Negative); Leukocyte Esterase,Urine Negative (Negative); Nitrite,Urine Negative (Negative); Protein,Urine Negative (Neg-Trace); Specific Gravity,Urine 1.015 (1.010-1.025); Urobilinogen,Urine Normal (Normal)
[2017-12-15 19:17] LABS: Color,Urine Yellow (Yellow)
[2017-12-16] MEDS: *HR* HYDROcodone/Acet 5/325 mg TABLET PO PRN ×2 (05:04→12:59)
[2017-12-16] MEDS: *HR* GlipiZIDE 5 MG TABLET PO SCH (08:43)
[2017-12-16] MEDS: amLODIPine 5 MG TABLET PO SCH (08:43)
[2017-12-16] MEDS: Gabapentin 300 MG CAPSULE PO SCH ×2 (08:43→20:21)
[2017-12-16] MEDS: *HR* Enoxaparin 40 MG/0.4 ML SYRINGE SQ SCH (08:43)
[2017-12-16] MEDS: Furosemide 40 MG TABLET PO SCH (08:43)
[2017-12-16] MEDS: Sennosides 8.6 MG TABLET PO SCH ×2 (08:44→20:22)
[2017-12-16] MEDS: traMADol 50 MG TABLET PO PRN ×2 (08:44→20:21)
--- NOTE | 2017-12-16 13:46 | Internal Med Progress Note ---
Date of Encounter: 12/16/17 Time of Encounter: 13:44 - Assessment and plan (1) S/P lumbar fusion Current Visit: Yes Status: Acute Assessment and plan: Patient is progressing well with physical therapy. Will continue with current plan of care and therapy. pain currently controlled with oral medications. Surgical incision appears healthy. No acute neurological deficits noted on exam (2) Diabetes Current Visit: No Status: Chronic Assessment and plan: No acute issues. Patient continues with fingersticks and encouraged from [facility]. Glucose has been well controlled with most readings less than 150. We will continue with current scheduled coverage. Qualifiers: Diabetes mellitus type: type 2 Diabetes mellitus complication status: without complication Diabetes mellitus wood science professor insulin use: without wood science professor use Qualified Code(s): E11.9 - Type 2 diabetes mellitus without complications (3) Slow transit constipation Current Visit: No Status: Acute (4) Anemia Current Visit: No Status: Acute Assessment and plan: Patient's most recent hemoglobin was stable at 8.6. Likely secondary to surgical blood loss. Qualifiers: Anemia type: unspecified type Qualified Code(s): D64.9 - Anemia, unspecified (5) Urinary frequency Current Visit: Yes Status: Acute Assessment and plan: Patient with complaints of urinary frequency or past 2 days. Denies any dysuria. Afebrile. Urinalysis was obtained which showed negative. - Subjective Interval history: Patient continues with complaint of slight low back pain with continued slight radicular symptoms in the right hip and leg. Denies any acute neurological deficits. Denies any chest discomforts or shortness of breath. - Constitutional Vitals: Temp Pulse Resp BP Pulse Ox 98.1 F 67 16 114/70 92 12/16/17 07:07 12/16/17 07:07 12/16/17 07:07 12/16/17 07:07 12/16/17 07:07 General appearance: Present: cooperative, A&O X 3, pleasant, no acute distress, answers questions appropriately - Head Head exam: Present: atraumatic, normocephalic - Eye Eye exam: Present: PERRL, conjuntiva pink, sclera anicteric Pupils: Present: PERRL - Neck Neck exam general surgery: Present: supple, trachea midline. Absent: lymphadenopathy - Respiratory Respiratory exam: Present: CTAB. Absent: accessory muscle use, rales, rhonchi, wheezes - Cardiovascular Cardiovascular exam: Present: RRR, +S1, +S2. Absent: diastolic murmur, gallop, rubs, systolic murmur - GI/Abdominal GI/Abdominal exam: Present: normal bowel sounds, soft, no peritoneal signs. Absent: distended, tenderness - Extremities Exam Extremities exam: Present: warm, radial pulses palpable and symmetrical. Absent : calf tenderness, cyanotic, pedal edema - Neurological Exam Neurological exam: Present: CN II-XII intact, oriented X3, no focal deficits. Absent: pronater drift, facial droop, speech deficit - Skin Skin exam: Present: dry, intact Additional comments: Lumbar surgical wound appears healthy and intact. Internal Medicine: Result - Labs CBC & Chem 7: 12/15/17 04:45 12/15/17 04:45 Labs: Urine 12/15/17 Range/Units 18:45 Urine Color Yellow (Yellow) Urine Clarity Slightly Cloudy A (Clear) Urine pH 7.0 (5.0-8.0) pH Units Ur Specific [place] 1.015 (1.010-1.025) Urine Protein Negative (Neg-Trace) mg/dL Urine Glucose (UA) Normal (Normal) mg/dL - ABG Interpretation ABG results: PT/INR, D-dimer PT 12.5 Seconds (9.4-12.1) H 12/09/17 07:05 - VTE Documentation of Mechanical Device: Graduated compression elastic hosiery Consult Discharge Plan - Plan Instructions: Lumbar Spinal Fusion (DC) Referrals: Eliseo Avalos Jr, MD [Partnered Physician] - 12/26/17 9:45 am ([facility] office [address], also has appointment on 03/20/18 at 11:45) Rey Márquez MD [Primary Care Provider] - 12/19/17 1:00 pm (hospital follow up, also has appintment 02/11/18 at 1pm)
[2017-12-17 07:44] VITALS: BP 119/49
[2017-12-17] MEDS: *HR* GlipiZIDE 5 MG TABLET PO SCH (08:03)
[2017-12-17] MEDS: *HR* HYDROcodone/Acet 5/325 mg TABLET PO PRN (08:03)
[2017-12-17] MEDS: *HR* Enoxaparin 40 MG/0.4 ML SYRINGE SQ SCH (08:04)
[2017-12-17] MEDS: Gabapentin 300 MG CAPSULE PO SCH (08:04)
[2017-12-17] MEDS: Sennosides 8.6 MG TABLET PO SCH (08:06)
[2017-12-17] MEDS: amLODIPine 5 MG TABLET PO SCH (08:06)
[2017-12-17] MEDS: Furosemide 40 MG TABLET PO SCH (08:06)
--- NOTE | 2017-12-17 10:23 | Discharge Summary ---
Date of Encounter: 12/17/17 Time of Encounter: 10:20 - Discharge Diagnosis (1) S/P lumbar fusion Priority: Primary Status: Acute (2) Diabetes Priority: Secondary Status: Chronic Qualifiers: Diabetes mellitus type: type 2 Diabetes mellitus complication status: without complication Diabetes mellitus jail insulin use: without termite inspector use Qualified Code(s): E11.9 - Type 2 diabetes mellitus without complications (3) Hypertension Priority: Secondary Status: Chronic (4) Slow transit constipation Priority: Secondary Status: Resolved - Discharge Medications Home Medications: Atorvastatin [Lipitor] 20 mg PO HS 10/06/15 [History] TraMADol [Ultram] 50 mg PO QID PRN 10/06/15 [History] Gabapentin [Neurontin] 300 mg PO BID 05/02/17 [History] Loperamide HCl [Imodium A-D] 2 mg PO Q6H PRN 05/02/17 [History] glipiZIDE [Glucotrol] 5 mg PO DAILY 05/02/17 [History] Metoprolol [Lopressor] 25 mg PO BID #60 tablet 05/05/17 [Rx] amLODIPine [Norvasc] 5 mg PO DAILY #30 tablet 05/05/17 [Rx] Albuterol Sulfate [Albuterol Inhaler] 2 puff IH Q4HR PRN 12/03/17 [History] Furosemide [Lasix] 40 mg PO DAILY 12/03/17 [History] Naproxen Sodium [Aleve] 220 mg PO BID PRN 12/03/17 [History] HYDROcodone/Acet 5/325 mg [[place] 5-325 mg] 2 tab PO Q4H PRN #60 tablet 12/08/17 [Rx] Allergies/Adverse Reactions: 3 Allergy/AdvReac Type Severity Reaction Status Date / Time codeine AdvReac Vomiting Verified 12/03/17 07:10 Date of admission: 12/08/17 17:13 Primary care physician: Rey Márquez MD Consults: 12/08/17 17:35 Consult to Occupational Therapy [CONS] Routine Comment: Evaluate, develop and implement POC Reason for Consult: s/p spinal fusion Consult to Physical Medicine/Rehab [CONS] Routine Reason for Consult: s/p spinal fusion Call Completed: No Consult to Physical Therapy [CONS] Routine Comment: Evaluate, develop and implement POC Reason for Consult: s/p spinal fusion Consult to Recreational Therapy [CONS] Routine Comment: Evaluate, develop and implement POC Consult to Lead Enterprise Architect [CONS] Routine Reason for SW Consult: s/p spinal fusion Discharging clinician: Cyndy Conn Anticipated date of discharge: 12/17/17 - Patient Status Disposition: Home, Self-Care Condition: Good Functional capacity at discharge: uses cane/walker Overall status at discharge: patient is progressing back to baseline - Discharge Instructions Instructions: How to Check Your Blood Sugar (DC), Lumbar Spinal Fusion (DC) Follow Up With: Eliseo Avalos Jr, MD [Partnered Physician] - 12/26/17 9:45 am ([facility] office [address], also has appointment on 03/20/18 at 11:45) Rey Márquez MD [Primary Care Provider] - 12/19/17 1:00 pm (hospital follow up, also has appintment 02/11/18 at 1pm) - Diet and Activity Activity: as per physical therapy Diet: advance to your usual diet Interval History: discharging to home. completed inpatient rehab course of therapy s/p lumbar fusion. pt to be discharged with [place] for pain controll, which has been effective. denies any questions. follow up with surgeon. to participate in outpatient PT Hospital course: Ms. Mcginnis is a 77 year old female - Time Spent with Patient Total time spent providing and/or coordinating discharge services: Less than 30 minutes - Constitutional Vitals: Temp Pulse Resp BP Pulse Ox 98.5 F 59 16 119/49 94 12/17/17 07:43 12/17/17 07:43 12/17/17 07:43 12/17/17 07:43 12/17/17 07:43 General appearance: Present: cooperative, A&O X 3, pleasant, no acute distress, answers questions appropriately - Head Head exam: Present: atraumatic, normocephalic - Eye Eye exam: Present: PERRL, conjuntiva pink, sclera anicteric Pupils: Present: PERRL - Neck Neck exam general surgery: Present: supple, trachea midline. Absent: lymphadenopathy - Respiratory Respiratory exam: Present: CTAB. Absent: accessory muscle use, rales, rhonchi, wheezes - Cardiovascular Cardiovascular exam: Present: RRR, +S1, +S2. Absent: diastolic murmur, gallop, rubs, systolic murmur - GI/Abdominal GI/Abdominal exam: Present: normal bowel sounds, soft, no peritoneal signs. Absent: distended, tenderness - Extremities Exam Extremities exam: Present: warm, radial pulses palpable and symmetrical. Absent : calf tenderness, cyanotic, pedal edema - Neurological Exam Neurological exam: Present: CN II-XII intact, oriented X3, no focal deficits. Absent: pronater drift, facial droop, speech deficit - Skin Skin exam: Present: dry, intact Additional comments: lumbar incision dry and intact, no signs of infection - VTE Documentation of Mechanical Device: Graduated compression elastic hosiery
== END 2017-12-17 11:15 | disposition home or self-care (01) | DRG 561 ==
LOC: INPGRE 17:13
PROVIDERS: ADMIT Internal Medicine; ATTEND Internal Medicine